=== PATIENT | female | born 1970 | race Caucasian/White ===

== ENCOUNTER 2020-06-06 13:12 | Observation (INO) ==
[2020-06-06 14:08] LABS: Bilirubin,Urine Negative (Negative); Blood,Urine Negative (Negative); Clarity,Urine Clear (Clear); Color,Urine Yellow (Yellow); Glucose,Urine (UA) Normal (Normal); Ketones,Urine Negative (Negative); Leukocyte Esterase,Urine Negative (Negative); Nitrite,Urine Negative (Negative); PH,Urine 7.5 pH Units (5.0-8.0); Protein,Urine Trace mg/dL (Neg-Trace); Specific Gravity,Urine 1.022 (1.010-1.025); Urobilinogen,Urine Normal (Normal)
[2020-06-06 14:12] LABS: Amphetamine Screen,Urine Negative ng/mL (Cutoff=1000); Barbiturate Screen,Urine Negative ng/mL (Cutoff=200); Benzodiazepines Screen,Urine Negative ng/mL (Cutoff=200); Cannabinoid Screen,Urine Negative ng/mL (Cutoff = 50); Cocaine Screen,Urine Negative ng/mL (Cutoff= 300); Opiate Screen,Urine Negative ng/mL (Cutoff=300); Phencyclidine Screen,Urine Negative ng/mL (Cutoff=25)
[2020-06-06 14:20] LABS: Basophils # 0.1 K/mcL (0.0-0.2); Basophils % 1.1 %; Eosinophils # 0.2 K/mcL (0.0-0.6); Eosinophils % 2.9 %; Hematocrit 39.2 % (35.3-44.9); Hemoglobin 12.4 g/dL (11.5-15.4); Immature Granulocytes % 0.6 % (0-4); Lymphocytes % 41.7 %; Mean Corpuscular HGB Conc 31.6 g/dL (31.6-35.5); Mean Corpuscular Hemoglobin 28.3 pg (28.0-33.3); Mean Corpuscular Volume 89.5 fL (83.0-100.0); Mean Platelet Volume 9.9 fL (9.4-12.4); Monocytes # 0.5 K/mcL (0.0-1.3); Monocytes % 6.2 %; Neutrophils # 3.5 K/mcL (1.6-8.9); Platelet Count 338 K/mcL (140-400); Red Blood Count 4.38 M/mcL (3.82-4.97); Red Cell Distribution Width 13.2 % (11.5-14.5); Segmented Neutrophils % 47.5 %; White Blood Count 7.3 K/mcL (4.3-11.1)
[2020-06-06 14:53] LABS: Acetaminophen < 10 mcg/mL (10-20); BUN/Creatinine Ratio 19 (6-26); Blood Urea Nitrogen 10 mg/dL (6-20); Calcium 10.1 mg/dL (8.6-10.3); Carbon Dioxide 27 mEq/L (23-29); Chloride 105 mEq/L (98-107); Chol/HDL Ratio 4.2 (0-4.9); Cholesterol 229 mg/dL (< 200); Ethanol < 10 mg/dL (Less than 10); Glucose 125 mg/dL (70-105); HDL Cholesterol 54 mg/dL (40-59); LDL Cholesterol,Calculated 137 mg/dL (< 100); Osmolality,Calculated 287 (280-300); Potassium 4.2 mEq/L (3.5-5.1); Salicylate < 2.5 mg/dL (15.0-30.0); Sodium 138 mEq/L (136-145); Triglycerides 191 mg/dL (< 150); eGFR For African Americans > 60 (> 60); eGFR For Non-African Americans > 60 (> 60)
[2020-06-06 16:12] LABS: Estimated Average Glucose 131 mg/dl
[2020-06-06] MEDS ORDERED: hydrOXYzine pamoate 25 MG CAPSULE PO PRN (17:28)
[2020-06-06] MEDS ORDERED: haloperidoL 5 MG TABLET PO PRN (17:28)
[2020-06-06] MEDS ORDERED: Mag Hydrox/Al Hydrox/Simeth 30 ML UDC PO PRN (17:28)
[2020-06-06] MEDS ORDERED: Acetaminophen 325 MG TABLET PO PRN (17:28)
[2020-06-06] MEDS ORDERED: *HR* LORazepam 1 MG TABLET PO PRN (17:28)
[2020-06-06] MEDS ORDERED: *HR* LORazepam 2 MG/ML VIAL IM PRN (17:28)
[2020-06-06] MEDS ORDERED: traZODone 50 MG TABLET PO PRN (17:28)
[2020-06-06] MEDS ORDERED: MOM Conc 10 ML UD.LIQ PO PRN (17:28)
[2020-06-06] MEDS ORDERED: Haloperidol Lactate 5 MG/ML VIAL IM PRN (17:28)
[2020-06-06] MEDS ORDERED: clonazePAM 1 MG TABLET PO PRN (17:43)
[2020-06-06] MEDS ORDERED: traZODone 50 MG TABLET PO SCH (21:00)
[2020-06-07] MEDS: lamoTRIgine 100 MG TABLET PO SCH ×2 (10:10→11:11)
[2020-06-07 11:13] VITALS: BP 142/84
== END 2020-06-07 12:40 | disposition home or self-care (01) ==
LOC: EMEROOARM 13:12 → 1ANU 17:06 → INTOOBSV 17:06 → 1ANU 18:30
PROVIDERS: ADMIT Psychiatry & Neurology Psychiatry; ATTEND Psychiatry & Neurology Psychiatry